=== PATIENT | male | born 1945 | race Caucasian/White ===

== ENCOUNTER → 2017-06-22 | Outpatient (CLI) | payer OTHER ==
[~2017-06-22] MED LIST: CHOL2000 PO; CYAN10005 PO; DOXA4TAB5 PO; DUTA0.5C PO; MAGN400T6 PO; MELA1TAB22 PO; MONT1TAB3 PO; VNTHFA/IN INH
[2017-06-22 18:19] LABS: BASO % 0.1 %; BASO ABS # 0.01 K/uL (0-0.2); EOS % 1.1 %; HEMATOCRIT 42.8 % (42-52); HEMOGLOBIN 14.9 g/dL (14.0-18.0); IG# 0.05 K/uL (0.00-0.02); LYMPH % 17.5 %; LYMPH ABS # 1.63 K/uL (1.2-3.4); MEAN CELL VOLUME 90.5 fL (80-100); MEAN CORPUSCULAR HEMOGLOBIN 31.5 pg (25-34); MEAN CORPUSCULAR HGB CONC 34.8 g/dl (32-36); MEAN PLATELET VOLUME 10.3 fL (7.4-10.4); MONO % 7.9 %; MONO ABS # 0.73 K/uL (0.11-0.59); NEUT % 72.9 %; NEUT ABS # 6.77 K/uL (1.4-6.5); PLATELET COUNT 280 K/uL (130-400); RED CELL DISTRIBUTION WIDTH CV 12.2 % (11.5-14.5); RED CELL DISTRIBUTION WIDTH SD 40.8 fL (36.4-46.3); WHITE BLOOD COUNT 9.29 K/uL (4.8-10.8)
[2017-06-22 18:59] LABS: ALBUMIN 3.4 gm/dl (3.4-5.0); ALT/SGPT 20 U/L (12-78); AST/SGOT 19 U/L (15-37); BLOOD UREA NITROGEN 23 mg/dl (7-18); CALCIUM 8.8 mg/dl (8.5-10.1); CARBON DIOXIDE 31 mmol/L (21-32); CREATININE 1.24 mg/dl (0.60-1.40); GLUCOSE 126 mg/dl (70-99); POTASSIUM 3.6 mmol/L (3.5-5.1); SODIUM 137 mmol/L (136-145)
[2017-06-22 19:04] LABS: ALKALINE PHOSPHATASE 68 U/L (45-117); CHOLESTEROL 180 mg/dl (0-200); LDL CHOLESTEROL CALCULATED 113 mg/dl
--- NOTE | 2017-06-22 19:43 | DIAGNOSTIC IMAGING REPORT ---
CHEST 2 VIEWS ROUTINE HISTORY: FEVER, WENT TO LAB FIRST COMPARISON: Chest CT 07/20/2006. FINDINGS: Stable calcified granulomas within the lungs. No focal lung consolidations to suggest pneumonia. The heart is normal in size. No pleural effusions. No pneumothorax. IMPRESSION: No acute process. Electronically signed by: Ryan Nath M.D. 06/22/2017 7:42 PM Dictated Date/Time: 06/22/2017 7:39 PM
[2017-06-24 14:30] LABS: ANA SCREEN TC 249X NEGATIVE (NEGATIVE)
== END | disposition home or self-care (01) ==
LOC: C.LAB 17:40
PROVIDERS: ATTEND Family Medicine
DX: E78.5 Hyperlipidemia, unspecified (principal); R50.9 Fever, unspecified; R53.83 Other fatigue

== ENCOUNTER → 2017-07-21 | Outpatient (CLI) | payer OTHER ==
--- NOTE | 2017-07-21 06:53 | DIAGNOSTIC IMAGING REPORT ---
(CHEST) THORAX WITHOUT CLINICAL HISTORY: 72 years-old Male presenting with COUGH, FEVER. TECHNIQUE: Multidetector CT imaging of the chest was performed without the use of intravenous contrast. IV contrast: None. A dose lowering technique was used consistent with the principles of ALARA (as low as reasonably achievable). COMPARISON: 07/20/2006. CT DOSE (mGy.cm): The estimated cumulative dose is 354.87 mGy.cm. FINDINGS: [facility] topogram: Hyperinflated lungs. On soft tissue windows, subcentimeter nodules in the right lobe of the thyroid. Bilateral gynecomastia noted. No axillary, supraclavicular, or mediastinal lymphadenopathy. Evaluation of the elisa limited without intravenous contrast. Atherosclerosis of the aorta. Normal heart size. Coronary artery calcification. No pericardial or pleural effusion. Multiple hypodense lobular well-defined lesions in the liver indeterminate but likely hepatic cysts. Multiple parapelvic renal cysts also noted. On lung windows, calcified granuloma noted. Few bandlike opacities likely represent atelectasis or scarring. No other focal nodule or infiltrate. Airways patent. On bone windows, degenerative changes of the spine. IMPRESSION: 1. No acute intrathoracic pathology. Electronically signed by: Isiah Julian M.D. 07/21/2017 6:52 AM Dictated Date/Time: 07/21/2017 6:47 AM
== END | disposition home or self-care (01) ==
LOC: C.CTS 06:33
PROVIDERS: ATTEND Family Medicine
DX: R05 Cough (principal); R50.9 Fever, unspecified

== ENCOUNTER → 2017-07-30 | Outpatient (CLI) | payer OTHER ==
--- NOTE | 2017-07-30 20:40 | ECHOCARDIOGRAM REPORT ---
*NOTICE TO RECEIVING CONSTITUTION PARTY AGENCY This information is strictly Confidential and protected under [place] law. [place] law prohibits you from making any further disclosure of this information unless further disclosure is expressly permitted by the written consent of the person to whom it pertains or is authorized by law. A general authorization for the release of medical or other information is not sufficient for this purpose. Hospital accepts no responsibility if the information is made available to any other person, INCLUDING THE PATIENT. Interpretation Summary * Name: ADILIA GARCIA Study Date: 07/30/2017 12:50 PM BP: 162/81 mmHg * Patient Location: [facility] HR: 66 * : 1945 (M/d/yyyy) Gender: Male Height: 71 in * Age: 72 yrs Ethnicity: CA Weight: 172 lb * Ordering Physician: Ramu Rodgers * Referring Physician: Ramu Rodgers. * Performed By: Fiona Reyes RCS * * Reason For Study: PERIDARDITIS * BSA: 2.0 m2 * -- Conclusions -- * 1. Normal left ventricular size and systolic function. EF 60-65%. No regional wall motion abnormalities. No left ventricular hypertrophy. Type 2 diastolic dysfunction. * 2. Mildly dilated right ventricle with normal systolic function. * 3. There is mild mitral regurgitation. * 4. Large cyst-like structure within the liver. Consider further imaging to further evaluate. * 5. Normal estimated right ventricular systolic pressure. * 6. No prior study available for comparison. Procedure Details * A complete two-dimensional transthoracic echocardiogram was performed (2D, M-mode, Doppler and color flow Doppler). Left Ventricle * Normal left ventricular size and systolic function. EF 60-65%. No regional wall motion abnormalities. No left ventricular hypertrophy. Type 2 diastolic dysfunction. Right Ventricle * Mildly dilated right ventricle with normal systolic function. * The right ventricular systolic function is normal as assessed by tricuspid annular plane systolic excursion (TAPSE) (normal >1.5 cm). Atria * The left atrial size is normal. * Right atrial size is normal. * There is no evidence of atrial septal defect, but resolution does not allow assessment for a patent foramen ovale. Mitral Valve * The mitral valve is grossly normal. * There is no mitral valve stenosis. * There is mild mitral regurgitation. Tricuspid Valve * The tricuspid valve is not well visualized, but is grossly normal. * There is no tricuspid stenosis. * There is mild tricuspid regurgitation. Aortic Valve * The aortic valve is trileaflet. * No hemodynamically significant valvular aortic stenosis. * Trace aortic regurgitation. Pulmonic Valve * The pulmonary valve is inadequately visualized, but the Doppler data is adequate for interpretation. * Pulmonic stenosis is absent. * Trace pulmonic valvular regurgitation. Great Vessels * The aortic root is normal size. * Normal pulmonary venous flow pattern. Pericardium/Pleural * There is no pericardial effusion. Great Vessels * Normal inferior vena cava size and collapsability with sniff indicates a normal right atrial pressure of 3 mmHg MMode 2D Measurements and Calculations IVSd 1.1 cm IVSs 1.5 cm LVIDd 5.2 cm LVIDs 3.3 cm LVPWd 1.1 cm LVPWs 1.5 cm IVS/LVPW 1.0 FS 36.0 % EDV(Teich) 126.7 ml ESV(Teich) 44.0 ml EF(Teich) 65.2 % EDV(cubed) 136.7 ml ESV(cubed) 35.8 ml EF(cubed) 73.8 % % IVS thick 37.5 % % LVPW thick 36.1 % LV mass(C)d 222.9 grams LV mass(C)dI 112.7 grams/m\S\2 LV mass(C)s 185.1 grams LV mass(C)sI 93.6 grams/m\S\2 SV(Teich) 82.7 ml SI(Teich) 41.8 ml/m\S\2 SV(cubed) 100.8 ml SI(cubed) 51.0 ml/m\S\2 Ao root diam 3.0 cm Ao root area 6.9 cm\S\2 ACS 1.9 cm LA dimension 3.7 cm LA/Ao 1.2 LVOT diam 2.0 cm LVOT area 3.1 cm\S\2 LVAd ap4 27.9 cm\S\2 LVLd ap4 6.9 cm EDV(MOD-sp4) 92.2 ml EDV(sp4-el) 95.5 ml LVAs ap4 14.4 cm\S\2 LVLs ap4 5.2 cm ESV(MOD-sp4) 33.6 ml ESV(sp4-el) 33.6 ml EF(MOD-sp4) 63.6 % EF(sp4-el) 64.9 % LVAd ap2 27.0 cm\S\2 LVLd ap2 7.4 cm EDV(MOD-sp2) 82.4 ml EDV(sp2-el) 83.3 ml LVAs ap2 15.9 cm\S\2 LVLs ap2 5.8 cm ESV(MOD-sp2) 37.6 ml ESV(sp2-el) 37.2 ml EF(MOD-sp2) 54.4 % EF(sp2-el) 55.4 % LVLd %diff 7.3 % EDV(MOD-bp) 85.7 ml LVLs %diff 9.6 % ESV(MOD-bp) 36.1 ml EF(MOD-bp) 57.9 % SV(MOD-sp4) 58.7 ml SI(MOD-sp4) 29.7 ml/m\S\2 SV(MOD-sp2) 44.8 ml SI(MOD-sp2) 22.6 ml/m\S\2 SV(MOD-bp) 49.6 ml SI(MOD-bp) 25.1 ml/m\S\2 SV(sp4-el) 62.0 ml SI(sp4-el) 31.3 ml/m\S\2 SV(sp2-el) 46.1 ml SI(sp2-el) 23.3 ml/m\S\2 Doppler Measurements and Calculations MV E max dk 76.6 cm/sec MV A max dk 71.2 cm/sec MV E/A 1.1 MV P1/2t max dk 94.2 cm/sec MV P1/2t 52.2 msec MVA(P1/2t) 4.2 cm\S\2 MV dec slope 528.6 cm/sec\S\2 MV dec time 0.20 sec Ao V2 max 134.1 cm/sec Ao max PG 7.2 mmHg Ao max PG (full) 4.5 mmHg SIXTO(V,A) 1.9 cm\S\2 SIXTO(V,D) 1.9 cm\S\2 LV V1 max PG 2.7 mmHg LV V1 max 81.4 cm/sec MR max dk 471.9 cm/sec MR max PG 89.1 mmHg PA V2 max 143.6 cm/sec PA max PG 8.2 mmHg PI max dk 174.2 cm/sec PI max PG 12.1 mmHg PI dec slope 183.3 cm/sec\S\2 PI P1/2t 278.4 msec TR max dk 279.0 cm/sec RVSP(TR) 34.2 mmHg RAP systole 3.0 mmHg
== END | disposition home or self-care (01) ==
LOC: C.CPL 12:42
PROVIDERS: ATTEND Family Medicine
DX: I31.9 Disease of pericardium, unspecified (principal)

== ENCOUNTER → 2017-08-03 | Outpatient (CLI) | payer OTHER | END | disposition home or self-care (01) | LOC: C.LAB1850 14:50 | PROVIDERS: ATTEND Internal Medicine Infectious Disease | DX: R50.9 Fever, unspecified (principal) ==

== ENCOUNTER → 2017-08-03 | Outpatient (CLI) | payer OTHER ==
[2017-08-03 16:14] LABS: BLOOD UREA NITROGEN 22 mg/dl (7-18); CREATININE 1.23 mg/dl (0.60-1.40)
== END | disposition home or self-care (01) ==
LOC: C.LAB1850 14:48
PROVIDERS: ATTEND Urology
DX: R31.0 Gross hematuria (principal); N40.1 Benign prostatic hyperplasia with lower urinary tract symptoms; R35.0 Frequency of micturition; N32.3 Diverticulum of bladder; R33.9 Retention of urine, unspecified

== ENCOUNTER → 2017-08-05 | Outpatient (CLI) | payer OTHER ==
[~2017-08-05] MED LIST changes: +OPTIRAY 320 IV PRN
--- NOTE | 2017-08-05 08:53 | DIAGNOSTIC IMAGING REPORT ---
CT ABD WITH IV CONTRAST ONLY (CT) CT DOSE: 209.98 mGy.cm CLINICAL HISTORY: Hepatic cyst. Flulike symptoms. TECHNIQUE: The patient was scanned in a dynamic helical fashion during intravenous administration of 93 cc of Optiray 320. A dose lowering technique was utilized adhering to the principles of ALARA. COMPARISON STUDY: CT scan of chest dated 07/21/2017, CT scan of the chest dated 07/20/2006. FINDINGS: Visualized portions of the lung bases reveal minimal dependent atelectatic change. There are no significant pleural effusions. This 74 mm hypodensity with thin the right hepatic lobe. This approaches water attenuation and is consistent with a cyst. This cyst measured 17 mm in 2006. There are multiple additional hepatic hypodensities which are felt to represent additional cysts. There is no ductal dilatation. No gallbladder abnormalities are visualized. No splenic masses are visualized. Masses are visualized. There is minor bilateral adrenal gland thickening. There are bilateral renal cortical and parapelvic cysts. No solid renal masses are visualized. There is a nonobstructing 2 mm left renal calculus. There is no evidence of pathologic upper abdominal lymphadenopathy. There is no evidence of abdominal aortic aneurysm. There is fecal retention. IMPRESSION: 1. Multiple hepatic cysts, slightly enlarged when compared the prior 2017 study 2. Nonobstructing 2 mm left renal calculus 3. Bilateral renal cortical and parapelvic cysts 4. Fecal retention Electronically signed by: Hilario Mulligan M.D. 08/05/2017 8:17 AM Dictated Date/Time: 08/05/2017 8:13 AM
== END | disposition home or self-care (01) ==
LOC: C.CTS 07:51
PROVIDERS: ATTEND Family Medicine
DX: K76.89 Other specified diseases of liver (principal)

== ENCOUNTER → 2017-08-11 | Outpatient (CLI) | payer OTHER ==
[~2017-08-11] MED LIST changes: -OPTIRAY 320 IV PRN
--- NOTE | 2017-08-11 09:47 | DIAGNOSTIC IMAGING REPORT ---
ABDOMEN LIMITED (US) CLINICAL HISTORY: 72 years-old Male presenting with CYST ON CT, EVIDENCE OF HYDATID DISEASE. TECHNIQUE: Real-time grayscale and limited color Doppler ultrasound imaging of the abdomen limited to the right upper quadrant was performed. COMPARISON: CT from 08/05/2017. FINDINGS: Pancreas: Visualized portions of the pancreatic head and body normal. Liver: Multiple lobular anechoic lesions in the liver compatible with cysts. The largest measures 6.3 x 5.6 x 6.5 cm. Several cysts appear as a small cluster. The liver measures 19.3 cm in maximal sagittal dimension. No sonographic evidence of solid hepatic mass. Main portal vein patent with normal directional flow. Biliary: No intrahepatic biliary ductal dilatation. Common bile duct measures up to 3 mm in diameter. Gallbladder: Trace gallbladder sludge. No evidence of gallstones, gallbladder wall thickening, gallbladder distention, or pericholecystic fluid or inflammatory change. Right kidney: Parapelvic cysts noted. No hydronephrosis. Normal renal size. Ascites: None. Other: None. IMPRESSION: 1. Multiple hepatic cysts. The appearance is not specific for hydatid disease. 2. Gallbladder sludge. Electronically signed by: Isiah Julian M.D. 08/11/2017 9:45 AM Dictated Date/Time: 08/11/2017 9:39 AM
== END | disposition home or self-care (01) ==
LOC: C.ULTR 08:42
PROVIDERS: ATTEND Family Medicine
DX: K76.89 Other specified diseases of liver (principal)

== ENCOUNTER 2023-08-20 08:24 | Observation (INO) ==
--- NOTE | 2023-08-09 09:59 | Anesthesiology Consultation ---
Date of Service August 09, 2023 Assessment & Plan (1) Encounter for pre-operative examination: Chart Review Chart Review: Acceptable Risk for Surgery and Patient NOT seen in Pre Admission Testing - Check BSG AM DOS -Infectious Disease screening: Per PAT nursing assessment on 08/05/23. No known infectious disease contacts in past 10 days or current infectious disease symptoms. No recent travel outside the country. History Surgery Operation Date: 08/20/23 09:40 Proposed Procedures p TURP (Transurethral Resection of Prostate) - Rizwan Zamarripa MD Height/Weight Height: 5 ft 11 in Weight: 74.843 kg Allergies Allergy/AdvReac Type Severity Reaction Status Date / Time No Known Drug Allergies Allergy Unknown . Verified 08/05/23 11:32 Dust Allergy Uncoded 08/05/23 11:32 Medications Home Medications Medication Instructions Recorded Confirmed Last Taken montelukast 10 mg tablet 10 mg PO HS 06/26/20 08/05/23 Unknown acetaminophen 500 mg tablet 500 mg PO Q8H PRN Pain 07/08/23 08/05/23 Unknown albuterol sulfate 90 mcg/actuation 1 inh inhalation UD PRN sob 07/08/23 08/05/23 Unknown aerosol inhaler cholecalciferol (vitamin D3) 50 50 mcg PO DAILY 07/08/23 08/05/23 Unknown mcg (2,000 unit) tablet docusate sodium 250 mg capsule 250 mg PO HS 07/08/23 08/05/23 Unknown oxybutynin chloride 5 mg tablet 5 mg PO DAILY PRN . 07/08/23 08/05/23 Unknown tamsulosin 0.4 mg capsule 0.4 mg PO HS 07/08/23 08/05/23 Unknown nystatin-triamcinolone 100,000 1 applic topical BID #30 grams 07/29/23 08/05/23 Unknown unit/gram-0.1 % topical ointment finasteride 5 mg tablet 5 mg PO QAM 08/05/23 08/05/23 Unknown valsartan 40 mg tablet 40 mg PO QAM 08/05/23 08/05/23 Unknown Past Medical History Medical History (Updated 08/09/23 @ 11:42 by Angie Olson PA-C) Allergy-induced asthma has not needed inhaler for a long time Bilateral inguinal hernia without obstruction or gangrene no surgery BPH (benign prostatic hyperplasia) Diabetes Per records Diet controlled Environmental allergies Sheldon catheter in place has been in place since approximately May 2023 (had lumbar decompression/fusion surgery in [place] that resulted in urinary retention) History of GI bleed 05/24/19 in [place], EGD& colonoscopy showed gastritis & diverticulosis History of skin cancer Hx of thyroid cyst pt unsure Hypertension Stage 3a chronic kidney disease Past Family History Family History Mother , age 86 Diabetes Father , age 75 Stroke Sister Diabetes Other Cancer Cardiac disorder No family history of adverse response to anesthesia Prostate cancer Denies family history of Ovarian cancer Myocardial infarction Breast cancer Colorectal cancer Past Surgical History Surgical History H/O colonoscopy History of cataract surgery rt/left S/P cystoscopy Social History Smoking Status: Never smoker Do You Dip or Chew Tobacco: No Hx Alcohol Use: Yes alcohol intake frequency: holidays/special occasions only Hx Substance Use: No substance use type: does not use Lab Results Anesthesia Preop Results Results Anesthesia Widget: WBC 7.92 K/ul (4.8-10.8) 08/05/23 Hgb 14.8 g/dl (14.0-18.0) 08/05/23 Hct 44.9 % (42.0-52.0) 08/05/23 Plt 401 K/uL (130-400) H 08/05/23 Na 137 mmol/L (136-145) 08/05/23 K 4.4 mmol/L (3.5-5.1) 08/05/23 Cl 102 mmol/L (98-107) 08/05/23 CO2 24 mmol/L (21-32) 08/05/23 BUN 32 mg/dl (6-23) H 08/05/23 Creat 1.32 mg/dl (0.6-1.4) 08/05/23 Glucose Level 223 mg/dl (70-99(Fasting)) H 08/05/23 Urine Color Yellow 07/05/23 Urine Appearance Clear (Clear) 07/05/23 Urine pH 5.5 (4.5-7.5) 07/05/23 Urine Specific [place] 1.020 (1.000-1.030) 07/05/23 Urine Protein Negative (Negative) 07/05/23 Urine Glucose (UA) Negative (Negative) 07/05/23 Urine Ketones Negative (Negative) 07/05/23 Urine Blood 2+ (Negative) H 07/05/23 Urine Nitrite Positive (Negative) A 07/05/23 Urine Bilirubin Negative (Negative) 07/05/23 Urine Urobilinogen Negative (Negative) 07/05/23 Urine Leukocyte Esterase Negative (Negative) 07/05/23 Urine WBC (Auto) 1-5 /hpf (0-5) 07/05/23 Urine RBC (Auto) 10-30 /hpf (0-4) H 07/05/23 Urine Hyaline Casts (Auto) 1-5 /lpf (0-5) 07/05/23 Urine Epithelial Cells (Auto) 0-5 /lpf (0-5) 07/05/23 Urine Bacteria (Auto) 3+ (Negative) H 07/05/23 Testing Laboratory Results 07/09/23= URINE CULTURE: E coli ESBL >100,000 CFU/ml 05/06/23= HGB A1C: 6.4 Electrocardiogram Date: 07/09/23 Findings: + NSR @ (66bpm) Left axis deviation Septal infarct, age undetermined (Patient can do 1 FOS without SOB, spoke with patient on 08/09/23- denies any chest pain, chest discomfort, SOB; had lumbar fusion 05/2023 without anesthesia issues - discussed with Dr. Ennis- patient can proceed as scheduled) Chest X-Ray FINDINGS: Lung volumes are normal. There is no consolidation. Calcified left lung nodules are unchanged. These are benign. There is no pneumothorax or pleural effusion. Cardiac size is normal. Mediastinal contours are normal. There is no evidence for pulmonary edema. Anterior osteophytosis of the thoracic spine is incidentally noted. IMPRESSION: No acute cardiopulmonary findings.
[2023-08-20] MEDS: LACTATED RINGER'S 1,000 ML IV SCH (09:01)
[2023-08-20] MEDS: GENTAMICIN SULFATE 80 MG in DEXTROSE 5% 100 ML IV SCH (09:02)
[2023-08-20] MEDS ORDERED: fentaNYL citrate PF 100 MCG/2 ML VIAL ONE (09:39)
[2023-08-20] MEDS ORDERED: MIDAZOLAM HCL 1 MG/ML 2ML VIAL ONE (09:39)
[2023-08-20] MEDS ORDERED: PROPOFOL IV EMULSION 10 MG/ML 20 ML VIAL IV ONE (09:45)
[2023-08-20] MEDS ORDERED: ONDANSETRON INJ 2 MG/ML 2 ML VIAL ONE (09:45)
[2023-08-20] MEDS ORDERED: LIDOCAINE 2% 2 ML VIAL/AMP(20MG/ML) INFIL ONE (09:45)
[2023-08-20] MEDS ORDERED: ePHEDrine sulfate 50 MG/ML AMP IV PRN (09:53)
[2023-08-20] MEDS ORDERED: ATROPINE SULFATE 0.1 MG/ML 10ML SYR IV PRN (09:53)
[2023-08-20] MEDS ORDERED: PROMETHAZINE HCL 6.25 MG in SODIUM CHLORIDE 0.9% 50 ML IV PRN (09:53)
--- NOTE | 2023-08-20 10:12 | History & Physical Bridge Note ---
Date of Service August 20, 2023 History & Physical Bridge Note I have examined the patient, reviewed the History & Physical and in the interval since the performance of the History & Physical I have noted the following changes of clinical significance: no changes noted
[2023-08-20] MEDS: AMPICILLIN 1,000 MG in SODIUM CHLOR 0.9% MINI-B 100 ML IV ONE (10:25)
[2023-08-20] MEDS ORDERED: PHENYLEPHRINE 100MCG/ML 10ML SYR IV ONE (11:03)
[2023-08-20] MEDS ORDERED: ePHEDrine sulfate 50 MG/5 ML SYR ONE (11:03)
[2023-08-20] MEDS: HYDROmorphone INJ 1 MG/ML SYRINGE IV PRN (11:37)
--- NOTE | 2023-08-20 11:37 | Operative Report ---
PG Post Operative Report Pre & Post Diagnosis Operation Date: 08/20/23 10:00 Pre-Op Diagnosis: Benign Prostatic Hyperplasia with Lower Urinary Tract Symptoms Post-Op Diagnosis: Benign Prostatic Hyperplasia with Lower Urinary Tract Symptoms I identified the patient and participated in the time-out.: Yes Procedure Operation Date: 08/20/23 10:00 Actual Procedures p Transurethral Resection of Prostate(Not Applicable) - Rizwan Zamarripa MD Surgeon Rizwan Zamarripa MD Electric Plater none Estimated Blood Loss 0 Findings Consistent with Post-Op Diagnosis Specimens Prostate chips Description of Procedure The patient was identified in the preoperative holding area, appropriate informed consents were reviewed and completed and the patient was transferred to the operative suite. Upon arrival, appropriate antibiotics and anesthesia were administered and the patient was placed in dorsal lithotomy position and prepped and draped in sterile fashion. Begin the case I passed a 26 Kyr[place]z resectoscope with 30 degree lens and visual line haul owner operator. Inspection revealed a healthy-appearing urethra and an enlarged prostate with a high bladder neck and lateral lobe obstruction. He does have some intravesical protrusion of his prostate. His bladder is heavily trabeculated with a notable diverticulum on the posterior wall just to the left of midline. No tumors or other gross abnormalities were proceed with in the bladder. Ureteral orifices were identified. Following my inspection I exchanged the visual obturator for loop electrode to begin resecting the prostatic tissue. I began around the bladder neck and took the intravesical tissue. I then proceeded to resect the left lateral lobe followed by the right lateral lobe. I concluded my resection by trimming some posterior tissue and apical tissue. All chips were irrigated out of the bladder and meticulous hemostasis was obtained. At the conclusion of the resection his prostate was widely patent. A 22 [place] 30 cc balloon Sheldon catheter was inserted without difficulty and he was reversed of anesthesia and taken to the recovery room in stable condition. There were no complications. I attest to the content of the Intraoperative Record and any orders documented therein. Any exceptions are noted below.
[2023-08-20] MEDS ORDERED: ALBUTEROL HFA 8 GM INHALER INH PRN (12:44)
[2023-08-20] MEDS ORDERED: GENTAMICIN CONSULT ACTIVE PRN (12:44)
[2023-08-20] MEDS ORDERED: GENTAMICIN SULFATE 80 MG in DEXTROSE 5% 100 ML IV SCH (12:44)
[2023-08-20] MEDS: SODIUM CHLORIDE 0.9% 1,000 ML IV SCH (13:05)
[2023-08-20] MEDS: ACETAMINOPHEN 500 MG TAB PO PRN (13:05)
--- NOTE | 2023-08-20 14:12 | Anesthesiology Progress Note ---
Date of Service August 20, 2023 Anesthesia Post Procedure Vital Signs Vital Signs: Temp Pulse Pulse Resp BP BP Pulse Ox 08/20/23 13:42 36.3 C L 61 17 133/66 96 08/20/23 13:17 36.5 C 60 17 126/71 95 08/20/23 12:45 36.3 C L 65 16 131/65 95 08/20/23 12:30 71 16 132/60 94 08/20/23 12:15 66 14 132/59 L 92 08/20/23 12:00 68 14 125/60 93 08/20/23 11:50 36.4 C L 65 16 132/63 97 08/20/23 11:40 64 14 133/62 100 08/20/23 11:32 36.0 C L 70 16 150/59 H 100 08/20/23 09:10 36.8 C 71 20 163/93 H 95 O2 Del Method O2 Flow Rate 08/20/23 13:42 Room Air 08/20/23 13:17 Room Air 08/20/23 12:45 Room Air 08/20/23 12:30 Room Air 08/20/23 12:15 Room Air 08/20/23 12:00 Room Air 08/20/23 11:50 Room Air 08/20/23 11:40 Oxymask 3 08/20/23 11:32 Oxymask 4 08/20/23 09:10 Room Air Pain Intensity Lower 2nd Digit Abdomen: Pain Intensity: 4 Penis: Pain Intensity: 4 Transfer of Care Handoff Completed per policy Notes Mental Status: alert / awake / arousable and participated in evaluation Nausea / Vomiting: adequately controlled Pain: adequately controlled Airway Patency, RR, SpO2: stable & adequate BP & HR: stable & adequate Hydration State: stable & adequate Anesthetic Complications: no major complications apparent and Pt Satisfied with anesthetic care
[2023-08-20 14:27] LABS: Creatinine Clr Calc Pharmacy 48.6 ml/min; Est GFR (African American) 64.5 ml/min; Est GFR (Non-African American) 55.6 ml/min
--- OUTSIDE RECORDS SUMMARY | 2023-08-20 14:47 | External Medical Summary | Summary of Care ---
Author Name Unknown Organization [facility] Address [address] [facility] [place] [address] Phone [phone] Care Team Providers Care Horse Breeder Name Role Phone Ramu Fuller MD Primary Care Provide r Reason for Visit * Reason Comments Follow Up Pt has a concerning lesion on his face that has grown back since using cryo Encounter Details Date Type Department Care Team (Late st Contact Info) Description 08/18/2023 8:30 AM EDT Office Visit Dermatology [facility] [address] [facility] [place] [address] Corona Kwon MD [address] [facility] [address] Inflamed seborrheic keratosis*; Actinic keratosis Allergies Active Allergy Reactions Criticality Noted Date Comments Dust Mite Extract 03/14/2014 Other reaction(s): Other Dust 03/14/2014 documented as of this encounter (statuses as of 08/18/2023) Medications Medication Sig Dispensed Refills Start Date End Date Status DOXAZOSIN MESYLATE 4 MG PO TABS 1 TABLET DAILY 0 Active AEROCHAMBER PLUS MISCIndications:As thma, severity to be determined use with inhalers as needed 1 5 12/04/2008 Active MIRALAX PO POWD Take by mouth. Pt takes 1/2 a capful every night 0 01/22/2009 Active Cyanocobalamin (VITAMIN B-12 ER) 1500 MCG TBCR Take 1 Tab by mouth daily. 0 Active Cholecalciferol (VITAMIN D3) 2000 units Capsule Take 1 Capsule by mouth in the morning. 0 Active Melatonin 5 MG Tablet Take 1 Capsule by mouth at bedtime. 0 Active finasteride (PROSCAR) 5 MG Tablet Take by mouth daily. 0 04/14/2019 Active omeprazole (PRILOSEC) 20 MG CPDR Take 1 Capsule by mouth in the morning. 0 Active Simethicone 125 MG Oral Capsule Take by mouth 3 times a day. 0 Active Dicyclomine HCl 10 MG Oral Capsule (Bentyl) Take 1 Cap by mouth 3 times a day. As needed for abdominal pain 270 Cap 1 06/24/2020 Active Finasteride 5 MG Oral Tablet (Proscar) Take 1 Tablet by mouth in the morning. 0 06/11/2020 Active Clindamycin Phosphate 1 % External GelIndications:Fol liculitis apply to pimple-like areas on face and back/upper body nightly as needed 60 g 2 09/27/2021 Active Acetaminophen 500 MG Oral Tablet (Tylenol) Take 1 Tablet by mouth. 0 11/06/2021 Active Diclofenac Potassium 50 MG Oral Tablet Take one tab daiy prn 0 07/07/2021 Active Diclofenac Sodium 1 % External Gel (Voltaren) Apply 4 g topically to affected area in the morning and 4 g at noon and 4 g in the evening and 4 g before bedtime. 0 08/08/2021 Active Gabapentin 100 MG Oral Capsule (Neurontin) 0 11/05/2021 Active Valsartan 80 MG Oral Tablet (Diovan) Take 1 Tablet by mouth in the morning. 0 07/07/2021 Active Cetirizine HCl 10 MG Oral Tablet (ZyrTEC) Take 1 tablet daily about an hour before bedtime to reduce postnasal drip due to underlying allergies 30 Tablet 6 12/30/2021 Active Additional Information Patient not taking.Reported on 05/04/2023 Minocycline HCl 50 MG Oral CapsuleIndications :Rosacea 1 tablet daily during breakouts as needed 60 Capsule 2 02/13/2022 Active Sodium Sulfacetamide Wash 10 % External LiquidIndications: Rosacea wash face/upper body a few times a week 355 mL 2 02/13/2022 Active DULoxetine HCl 40 MG Oral Capsule Delayed Release Particles Take 1 Capsule by mouth in the morning. 0 11/05/2022 Active Montelukast Sodium 10 MG Oral Tablet (Singulair) Take 1 Tablet by mouth every evening. 90 Tablet 3 12/07/2022 Active Ventolin HFA 108 (90 Base) MCG/ACT Inhalation Aerosol Solution INHALE TWO PUFFS BY MOUTH EVERY FOUR HOURS NEEDED FOR COUGH, WHEEZING OR SHORTNESS OF BREATH AND WITH RESPIRATORY INFECTIONS 18 g 5 01/28/2023 Active [place]-Smoothe/FS Scalp 0.01 % External Oil Apply to scalp 118.28 mL 0 03/08/2023 Active Magnesium 200 MG Tablet Take 1 Tablet by mouth in the morning. 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 Hx of actinic keratosis 02/10/2017 PND (post-nasal drip) 04/29/2015 Ringing in left ear 01/16/2014 Asthma, mild persistent 08/04/2011 Allergic rhinitis 08/04/2011 Hoarseness 08/04/2011 Benign neoplasm of colon 02/10/2009 Overview: adenomatous polyp, fair prep, f/u in 2-3 yrs Hyperplasia of prostate with out lower urinary tract symptoms (LUTS) Rosacea documented as of this encounter (statuses as of 08/18/2023) Resolved Problems Problem Noted Date Diagnosed Date Resolved Date Intermittent asthma with rel iever use up to twice per week 01/06/2011 08/04/2011 Asthma, mild persistent 01/07/201012/12 Allergic rhinitis 09/11/2008 08/04/2011 Dyspnea and respiratory abnormality 07/12/2007 05/07/2009 Overview: ICD-10 update of inactive term Asthma with severity to be determined 06/07/2007 01/07/2010 Overview: ICD-10 update of inactive term documented as of this encounter (statuses as of 08/18/2023) Immunizations Name Administration Dates Next Due Season Influenza, Quad, PF, Adjuvanted, 65+ Yrs, IM (FLUAD) 12/19/2019 Seasonal Influenza, Quadrivalent, No Preserve, I M 02/24/2015 documented as of this encounter Social History Tobacco Use Types Packs/Day Years Used Date Smoking Tobacco: Never Smokeless Tobacco: Never Comments:no passive smoke ex posure Alcohol Use Standard Drinks/Week Comments No 0 (1 standard drink = 0.6 oz pur e alcohol) Sex and Gender Information Value Date Recorded Sex Assigned at Male 09/17/2021 7:40 PM EDT Gender Identity Male 09/17/2021 7:40 PM EDT Sexual Orientation Straight 09/17/2021 7: 40 PM EDT Job Start Date Occupation Industry Not on file Not on file Not on file Travel History Travel Start Travel End [place] 08/08/2023 08/17/2023 documented as of this encounter Progress Notes * Corona Kwon MD - 08/18/2023 8:33 AM EDT SUBJECTIVE: Chief Complaint: Chief Complaint Patient presents with Follow Up Pt has a concerning lesion on his face that has grown back since using cryo HPI: Xu Bess is a 78 year old male seen for ACUTE visit for lesion on right taoism. Gre back after cryo. Also has a few other spots on face he'd like me to examine OBJECTIVE: GEN: Healthy, alert, no distress, appears oriented, pleasant, and cooperative SKIN: Problem focused exam reveals: A. Right taoism - 5mm waxy brown papule with surrounding erythema - ISK Forehead x2, left cheek x1 - x3 gritty erythematous macules/papules ASSESSMENT/PLAN: Skin neoplasm Recommend biopsy - likely ISK, but r/o SCC - patient declined biopsy today due to upcoming procedure, would like to wait 2- 3 weeks. Will see back in 3 weeks for biopsy/removal to r/o scc actinic keratoses - recommend cryo, will treat at same time as biopsy above Corona Kwon MD Ref: SELF[[id number]] NO STRE[address] ADDRESS AVAILABLE None (office) None (fax) PCP: RAMU FULLER [address] [place] [address] [phone] documented in this encounter Nursing Notes * Alysia Sharp LPN - 08/18/2023 8:29 AM EDT Patient identified by name and date of . Do you have any concerns about pain management for today's visit? No Living Will or Advance Directive for Health Care as noted on problem list. [facility] is a way you can talk to your provider online through e-mail. Would you like to sign up? I can activate it for you? ALREADY ACTIVE Chief Complaint Patient presents with Follow Up Pt has a concerning lesion on his face that has grown back since using cryo documented in this encounter Plan of Treatment Upcoming Encounters Date Type Department Care Team (Late st Contact Info) Description 09/03/2023 3:00 PM EDT Office Visit Otolaryngology [facility] [address] [place] [address] Naresh Martinez DO [address] [place] [address] 09/08/2023 8:00 AM EDT Office Visit Dermatology [facility] [place] [address] [place] [address] Corona Kwon MD [address] [place] [address] Scheduled Procedures Name Priority Associated Diagnoses Date/Ti me COLONOSCOPY FLEXIBLE PROXIMAL DIAGNOSTIC Recall History of colon polyps Health Maintenance Due Date Last Done Comments Depression Screening 1957 DTaP,Tdap,and Td Vaccines (1 - Tdap) 1962 Pneumococcal Vaccine: 65+ Years (2 of 2 - PCV) 06/14/2010 06/14/2009 COVID-19 Vaccine ( - 2022- season) 2023 02/02/2023, 02/02/2023, 01/07/2022, Additional history exists Colonoscopy 05/19/2024 05/19/2019, 02/11, 03/10/2017, Additional history exists RETIRED - COLONOSCOPY-EVERY 5 YRS AGES 18-100 Discontinued 05/19/2019, 03/10/2017, 03/10/2017, Additional history exists Zoster Vaccines Completed 11/07/2020, 10/10, 06/15/2020, Additional history exists Influenza Vaccine (FLU shot) Completed 02/02/2023, 12/19/2019, 12/19/2019, Additional history exists GARDASIL-HPV IMMUNIZATION SERIES Aged Out No longer eligible based on patient's age to complete this topic Hepatitis B Aged Out No longer eligi ble based on patient's age to complete this topic MENINGOCOCCAL (MENACTRA/MENVEO) Aged Out No longer eligible based on patient's age to complete this topic documented as of this encounter Medical Devices Not on filedocumented as of this encounter Visit Diagnoses Diagnosis Inflamed seborrheic keratosis- Primary Actinic keratosis documented in this encounter Care Teams Horse Breeder Relationship Specialty Start Date End Date Ramu Fuller MD [address] [place] [address] PCP - General Family Medicine 08/26/22 documented as of this encounter
--- OUTSIDE RECORDS SUMMARY | 2023-08-20 14:47 | External Medical Summary | Summary of Care ---
Author Name Unknown Organization [facility] Address [address] [facility] [place] [address] Phone [phone] Care Team Providers Care Spiritual Minister Name Role Phone Ramu Fuller MD Primary Care Provide r Reason for Visit * Reason Comments Follow Up Pt has a concerning lesion on his face that has grown back since using cryo Encounter Details Date Type Department Care Team (Late st Contact Info) Description 08/18/2023 8:30 AM EDT Office Visit Dermatology [facility] [address] [facility] [place] [address] Corona [facility]won MD [address] [facility] [address] Inflamed seborrheic keratosis*; Actinic keratosis Allergies Active [...] RESPIRATORY INFECTIONS 18 g 5 01/28/2023 Active [place]-Smoothe/FS Scalp 0.01 % External Oil Apply to [...] file Travel History Travel Start Travel End [place] 08/08/2023 08/17/2023 documented as of this encounter Progress Notes * Corona Kwon MD - 08/18/2023 8:33 AM EDT SUBJECTIVE: Chief Complaint: Chief Complaint Patient presents with Follow Up Pt has a concerning lesion on his face that has grown back since using cryo HPI: Xu Bess is a 78 year old male seen for ACUTE visit for lesion on right orthodoxy. Gre back after cryo. Also has a few other spots on face he'd like me to examine OBJECTIVE: GEN: Healthy, alert, no distress, appears oriented, pleasant, and cooperative SKIN: Problem focused exam reveals: A. Right orthodoxy - 5mm waxy brown papule with surrounding [...] as biopsy above Corona Kwon MD Ref: SELF[[id number]] NO STRE[address] ADDRESS AVAILABLE None (office) None (fax) PCP: RAMU FULLER [address] [place] [address] [phone] documented in this encounter Nursing Notes * Alysia Sharp LPN - 08/18/2023 8:29 AM EDT Patient identified by name and date of . Do you have any concerns about pain management for today's visit? No Living Will or Advance Directive for Health Care as noted on problem list. [facility] is a way you can talk to [...] 09/03/2023 3:00 PM EDT Office Visit Otolaryngology [facility] [address] [place] [address] Naresh Martinez DO [address] [place] [address] 09/08/2023 8:00 AM EDT Office Visit Dermatology [facility] [place] [address] [place] [address] Corona Kwon MD [address] [place] [address] Scheduled Procedures Name Priority Associated Diagnoses Date/Ti [...] keratosis documented in this encounter Care Teams Spiritual Minister Relationship Specialty Start Date End Date Ramu Fuller MD [address] [place] [address] PCP - General Family Medicine 08/26/22 documented as of this encounter
--- NOTE | 2023-08-20 15:17 | Pharmacy Report ---
Pharmacy PK ABX Note - Date of Service August 20, 2023 - Assessment and Plan Assessment 78 year old M receiving gentamicin for treatment of UTI-complicated. Pertinent microbiologic data includes: Hx ESBL E. Coli in urine 07/08 R Fluoroquinolones, Bactrim S meropenem, ertapenem, gentamicin. Reported UTI POD #0 TURP Day # 1 of antimicrobial therapy. Plan Gentamicin * gentamicin 80 mg IV x 1 preop, additional 240mg ordered for now (5mg/kg total) * Maintenance dose: 360 mg IV every 24 hours * Random level ordered for: 08/20/23 @2200 * Dosing adjustments per the [facility] will continue to follow and will adjust dose/frequency as necessary. Thank you.
[2023-08-20] MEDS: GENTAMICIN SULFATE 280 MG in DEXTROSE 5% 100 ML IV ONE (15:48)
[2023-08-20] MEDS: PHENAZOPYRIDINE HCL 200 MG TAB PO PRN (15:57)
[2023-08-20] MEDS: bisacodyL 10 MG SUPP PR STA (17:57)
[2023-08-20] MEDS: DOCUSATE SODIUM 100 MG CAP PO ONE (18:04)
[2023-08-20] MEDS: MELATONIN 3 MG TAB PO PRN (22:18)
[2023-08-20] MEDS: MONTELUKAST SODIUM 10 MG TABLET PO SCH (22:46)
[2023-08-21 06:35] LABS: Basophils # (auto) 0.01 K/uL (0.00-0.20); Basophils % (auto) 0.1 %; Eosinophils % (auto) 1.3 %; Hematocrit (blood only) 41.2 % (42.0-52.0); Hemoglobin 13.5 g/dl (14.0-18.0); Immature Granulocytes # (auto) 0.04 K/uL (0.01-0.20); Immature Granulocytes % (auto) 0.5 %; Lymphocytes # (auto) 1.15 K/uL (1.20-3.40); Lymphocytes % (auto) 14.4 %; Mean Corpuscular Hgb Conc 32.8 g/dL (32.0-36.0); Mean Corpuscular Volume 91.6 fL (80.0-100.0); Mean Platelet Volume 10.2 fL (9.4-12.4); Monocytes # (auto) 0.65 K/uL (0.11-0.59); Monocytes % (auto) 8.1 %; Neutrophils # (auto) 6.05 K/uL (1.40-6.50); Neutrophils % (auto) 75.6 %; Platelet Count 311 K/uL (130-400); RDW Coefficient of Variation 12.7 % (11.5-14.5); RDW Standard Deviation 42.5 fL (36.4-46.3)
[2023-08-21 06:59] LABS: BUN Creatinine Ratio 20.7 (10-20); Calcium 8.7 mg/dl (8.6-10.3); Creatinine Clr Calc Pharmacy 42.3 ml/min; Est GFR (African American) 54.6 ml/min; Est GFR (Non-African American) 47.1 ml/min; Potassium 4.3 mmol/L (3.5-5.1)
--- NOTE | 2023-08-21 09:07 | Urology Progress Note ---
Date of Service August 21, 2023 Assessment & Plan (1) Urinary retention due to benign prostatic hyperplasia: Plan: Postop day #1 status post TURP Remove catheter now Discharge home after void Admission and Anticipated Discharge Date Admission Date: August 20, 2023 Subjective Progressing appropriately after TURP Urine clear No significant pain Anxious for voiding trial and discharge home Physical Exam Physical Exam: Urine clear (orange from Pyridium) Results & Data Vital Signs (Past 12 Hours) Vital Signs Temp Pulse Resp BP Pulse Ox O2 Del Method 08/21/23 07:47 37.0 C 60 16 141/64 H 96 Room Air 08/21/23 03:38 36.4 C L 66 16 128/68 96 Room Air 08/20/23 23:00 36.5 C 55 L 16 138/72 98 Room Air PG Care Time/CCT Total # of Minutes Spent Total Time Spent with Patient: Total time spent is greater than 50% in coordination of care (as documented) at patient's floor/unit and/or counseling patient: Coding Level of Care Code None Diagnoses Urinary retention due to benign prostatic hyperplasia N40.1; R33.8
[2023-08-21] MEDS: VALSARTAN 80 MG TAB PO SCH (09:45)
[2023-08-21] MEDS ORDERED: GENTAMICIN SULFATE 360 MG in DEXTROSE 5% 100 ML IV SCH (15:00)
[2023-08-22] MEDS ORDERED: GENTAMICIN SULFATE 360 MG in DEXTROSE 5% 100 ML IV SCH (03:00)
== END 2023-08-21 11:54 | disposition home or self-care (01) ==
LOC: 3N 08:24 → ASU 08:24 → 3N 19:16

== ENCOUNTER 2023-09-01 19:18 | Inpatient (IN) ==
[2023-09-01 19:56] LABS: Appearance Urine Turbid (Clear); Bilirubin Urine Negative (Negative); Blood Urine 3+ (Negative); Color Urine Red; Glucose Urine UA Negative (Negative); Ketones Urine Negative (Negative); Leukocyte Esterase Urine 1+ (Negative); Nitrite Urine Negative (Negative); Protein Urine 3+ (Negative); Specific Gravity Urine 1.025 (1.000-1.030); Urobilinogen Urine Negative (Negative); pH Urine 5.5 (4.5-7.5)
[2023-09-01 19:59] LABS: Epithelial Cell Urine 0-2 /hpf (0-2)
[2023-09-01 20:00] LABS: Bacteria Urine None Seen (None Seen); RBC Urine >20 /hpf (0-2); WBC Urine >50 /hpf (0-5)
[2023-09-01 20:17] LABS: Basophils # (auto) 0.01 K/uL (0.00-0.20); Basophils % (auto) 0.1 %; Eosinophils # (auto) 0.09 K/uL (0.00-0.50); Eosinophils % (auto) 0.7 %; Hematocrit (blood only) 43.2 % (42.0-52.0); Hemoglobin 14.4 g/dl (14.0-18.0); Immature Granulocytes # (auto) 0.06 K/uL (0.01-0.20); Immature Granulocytes % (auto) 0.5 %; Lymphocytes # (auto) 1.68 K/uL (1.20-3.40); Lymphocytes % (auto) 13.9 %; Mean Corpuscular Hemoglobin 29.9 pg (25.0-34.0); Mean Corpuscular Hgb Conc 33.3 g/dL (32.0-36.0); Mean Corpuscular Volume 89.6 fL (80.0-100.0); Monocytes % (auto) 8.3 %; Neutrophils # (auto) 9.27 K/uL (1.40-6.50); Neutrophils % (auto) 76.5 %; Platelet Count 381 K/uL (130-400); RDW Coefficient of Variation 12.6 % (11.5-14.5); RDW Standard Deviation 41.3 fL (36.4-46.3); Red Blood Count 4.82 M/uL (4.70-6.10); White Blood Count 12.11 K/ul (4.8-10.8)
[2023-09-01 20:32] LABS: Albumin Globulin Ratio 1.3 (0.9-2); Albumin Level 4.1 gm/dl (3.4-5.0); BUN Creatinine Ratio 25.5 (10-20); Bilirubin,Total 0.5 mg/dl (0.2-1.0); Calcium 9.2 mg/dl (8.6-10.3); Est GFR (African American) 56.1 ml/min; Est GFR (Non-African American) 48.4 ml/min; Globulin 3.2 gm/dl (2.5-4.0); Potassium 4.6 mmol/L (3.5-5.1); Total Protein 7.3 gm/dl (6.0-8.3)
--- NOTE | 2023-09-01 22:45 | Emergency Department Note ---
History of Present Illness General Chief complaint: Hematuria Stated complaint: RECENT SURG, HEMATURIA/10 HRS, URGENCY Time Seen by Provider: 09/01/23 21:48 History of Present Illness Maximum Pain Intensity: 3 This 78-year-old male that had a TURP [address] Zamarripa who finished antibiotics 5 days ago presents ER for increasing urinary symptoms and bladder discomfort. Patient has a history of ESBL. He is unsure of his antibiotic from 5 days ago. Patient denies chest pain, dyspnea, fevers, vomiting, flank pain. Home Medications Medication Instructions Recorded Confirmed Type montelukast 10 mg tablet 10 mg PO HS 06/26/20 09/01/23 History acetaminophen 500 mg tablet 500 mg PO Q8H PRN Pain 07/08/23 09/01/23 History albuterol sulfate 90 mcg/actuation 1 inh inhalation UD PRN sob 07/08/23 09/01/23 History aerosol inhaler cholecalciferol (vitamin D3) 50 50 mcg PO DAILY 07/08/23 09/01/23 History mcg (2,000 unit) tablet docusate sodium 250 mg capsule 250 mg PO HS 07/08/23 09/01/23 History oxybutynin chloride 5 mg tablet 5 mg PO DAILY PRN . 07/08/23 09/01/23 History finasteride 5 mg tablet 5 mg PO QAM 08/05/23 09/01/23 History valsartan 40 mg tablet 40 mg PO QAM 08/05/23 09/01/23 History ketoconazole 2 % topical cream 1 applic topical BID PRN NEEDED 09/01/23 09/01/23 History nystatin-triamcinolone 100,000 1 applic topical BID PRN NEEDED 09/01/23 09/01/23 History unit/gram-0.1 % topical ointment vibegron 75 mg tablet (Gemtesa) 75 mg PO DAILY 09/01/23 09/01/23 History Allergies Allergy/AdvReac Type Severity Reaction Status Date / Time house dust Allergy Intermediate Sneezing Verified 09/01/23 23:22 Past Med/Surg History Problem List (Updated 09/02/23 @ 00:27 by Dora Price PA-C) History of ESBL E. coli infection (Acute) Acute UTI (Acute) Urinary obstruction Diabetes Per records Diet controlled Inguinal hernia Stage 3a chronic kidney disease Hypertension Lumbar disc disease with radiculopathy Chronic superficial gastritis without bleeding seen on EGD 05/19/21 Sensorineural hearing loss (SNHL) of both ears Allergic rhinitis Asthma (Acute) BPH with obstruction/lower urinary tract symptoms (Acute) Diverticulum of bladder (Acute) Urinary frequency (Acute) Bilateral inguinal hernia without obstruction or gangrene no surgery Medical History Sheldon catheter in place has been in place since approximately May 2023 (had lumbar decompression/fusion surgery in [place] that resulted in urinary retention) BPH (benign prostatic hyperplasia) History of GI bleed 05/24/19 in [place], EGD& colonoscopy showed gastritis & diverticulosis History of skin cancer Environmental allergies Hypertension Allergy-induced asthma has not needed inhaler for a long time Hx of thyroid cyst pt unsure Surgical History S/P cystoscopy H/O colonoscopy History of cataract surgery rt/left Family History Mother , age 86 Diabetes Father , age 75 Stroke Sister Diabetes Other Cancer Cardiac disorder No family history of adverse response to anesthesia Prostate cancer Denies family history of Ovarian cancer Myocardial infarction Breast cancer Colorectal cancer Social History Smoking Status: Unknown if ever smoked Second Hand Exposure: No; Do You Dip or Chew Tobacco: No; Hx Alcohol Use: Yes Hx Substance Use: No Preferred Language: Indian Communication Ability: Effective Visual Impairment: Limited Hearing Ability: Use of Hearing Aid [employer] Services Supervisor Required: No Beliefs That Will Affect Care: None marital status: Current Living Situation: Spouse current occupational status: employed current occupation: Professor @ [employer] How many Children do You have: 4 Feels Safe at Home: Yes Childhood Exposure to Second-Hand Smoke: No Diet: low salt caffeine: Yes (espresso 3-4 cups daily) Dental Care, Regularly: Yes Physical Activity Frequency: Daily Seatbelt Use: always Sunscreen Use: No Do you think of yourself as: straight/heterosexual Gender Identity: Male Assistive Devices: None Review of Systems A total of 10 systems reviewed and were otherwise negative Physical Exam Vital Signs Vital Signs - 24 hr 05/22/24 19:19 09/01/23 21:19 09/01/23 23:19 Temperature 36.9 C Temperature Source Temporal Artery Scan Pulse Rate 83 80 Pulse Rate [Finger] 86 Respiratory Rate 19 16 Respiratory Effort / Characteristics Non-Labored Respiratory Depth Normal Respiratory Pattern Blood Pressure 175/85 H Blood Pressure [Right Arm] Blood Pressure Mean 115 Blood Pressure Mean [Right Arm] Pulse Oximetry 96 95 Oxygen Delivery Method Room Air Room Air Sepsis Recent Fever Within 48 Hours No Sepsis New/Unexplained Change in Mental Status N/A Sepsis Action Taken by Nursing No Action Required 09/01/23 23:20 Temperature Temperature Source Pulse Rate Pulse Rate [Finger] 78 Respiratory Rate 18 Respiratory Effort / Characteristics Non-Labored Respiratory Depth Normal Respiratory Pattern Regular Blood Pressure Blood Pressure [Right Arm] 155/90 H Blood Pressure Mean Blood Pressure Mean [Right Arm] 111 Pulse Oximetry 100 Oxygen Delivery Method Room Air Sepsis Recent Fever Within 48 Hours Sepsis New/Unexplained Change in Mental Status Sepsis Action Taken by Nursing VITALS: Vitals are noted on the nurse's note and reviewed by myself. Vital signs stable. GENERAL: Pleasant gentleman with present, in no acute distress, nondiaphoretic, well-developed well-nourished. SKIN: Capillary reflex less than 2 seconds. HEENT: Normocephalic. PERRLA. EOMI. Nares patent. Mucous membranes moist. Neck is supple without nuchal rigidity. HEART: Regular rate and rhythm LUNGS: Clear to auscultation bilaterally without wheezes, rales or rhonchi. No retractions or accessory muscle use. ABDOMEN: Positive bowel sounds x 4. Normal tympanic percussion. Soft, tender lower abdomen, without masses or organomegaly. Horner sign negative. No guarding or rebound tenderness. no CVA tenderness MUSCULOSKELETAL: No gross musculoskeletal defects. NEURO: Patient was alert and oriented to person place and time. No focal neurological deficits. Course Administered Medications Discontinued Medications Meropenem 500 mg/ Syringe 10 mls @ 2 mls/min IV NOW STA; Protocol Stop: 09/01/23 21:52 Last Admin: 09/01/23 23:08 Dose: 2 mls/min Documented By: EARLINE Ioversol (Optiray 320 100ml) 87 ml IV ONCE ONE Stop: 09/01/23 22:56 Last Admin: 09/01/23 22:55 Dose: 87 ml Documented By: DEBBIE Medical Decision Making Medical Records Attestation: I reviewed the patient's medical records. Home Medications Current Medication List: was personally reviewed by me Laboratory Data Attestation: I reviewed the patient's lab results. 09/01/23 20:00 09/01/23 20:00 Lab Results 09/01/23 09/01/23 Range/Units 19:07 20:00 WBC 12.11 H (4.8-10.8) K/ul RBC 4.82 (4.70-6.10) M/uL Hgb 14.4 (14.0-18.0) g/dl Hct 43.2 (42.0-52.0) % MCV 89.6 (80.0-100.0) fL MCH 29.9 (25.0-34.0) pg MCHC 33.3 (32.0-36.0) g/dL RDW Std Deviation 41.3 (36.4-46.3) fL RDW Coeff of [place] 12.6 (11.5-14.5) % Plt Count 381 (130-400) K/uL MPV 10.0 (9.4-12.4) fL Immature Gran % (Auto) 0.5 % Neut % (Auto) 76.5 % Lymph % (Auto) 13.9 % [place] % (Auto) 8.3 % Eos % (Auto) 0.7 % Baso % (Auto) 0.1 % Neut # (Auto) 9.27 H (1.40-6.50) K/uL Lymph # (Auto) 1.68 (1.20-3.40) K/uL [place] # (Auto) 1.00 H (0.11-0.59) K/uL Eos # (Auto) 0.09 (0.00-0.50) K/uL Baso # (Auto) 0.01 (0.00-0.20) K/uL Immature Gran # (Auto) 0.06 (0.01-0.20) K/uL Sodium 134 L (136-145) mmol/L Potassium 4.6 (3.5-5.1) mmol/L Chloride 101 (98-107) mmol/L Carbon Dioxide 26 (21-32) mmol/L Anion Gap 7 (3-11) BUN 35 H (6-23) mg/dl Creatinine 1.37 (0.6-1.4) mg/dl Est Cr Clr Drug Dosing 43.0 ml/min Est GFR ( Amer) 56.1 ml/min Est GFR (Non-Af Amer) 48.4 ml/min BUN/Creatinine Ratio 25.5 H (10-20) Glucose 121 H (70-99(Fasting)) mg/dl Calcium 9.2 (8.6-10.3) mg/dl Total Bilirubin 0.5 (0.2-1.0) mg/dl AST 19 (13-39) U/L ALT 9 (7-52) U/L Alkaline Phosphatase 54 (34-104) U/L Total Protein 7.3 (6.0-8.3) gm/dl Albumin 4.1 (3.4-5.0) gm/dl Globulin 3.2 (2.5-4.0) gm/dl Albumin/Globulin Ratio 1.3 (0.9-2) Urine Color Red Urine Appearance Turbid A (Clear) Urine pH 5.5 (4.5-7.5) Ur Specific [place] 1.025 (1.000-1.030) Urine Protein 3+ H (Negative) Urine Glucose (UA) Negative (Negative) Urine Ketones Negative (Negative) Urine Blood 3+ H (Negative) Urine Nitrite Negative (Negative) Urine Bilirubin Negative (Negative) Urine Urobilinogen Negative (Negative) Ur Leukocyte Esterase 1+ H (Negative) Urine RBC >20 H (0-2) /hpf Urine WBC >50 H (0-5) /hpf Ur Epithelial Cells 0-2 (0-2) /hpf Urine Bacteria None Seen (None Seen) Imaging Data Attestation: I personally reviewed and interpreted this imaging study as follows: Radiologist's Impression: Abdomen/Pelvis CT 09/01/23 21:48 Exam(s): CT ABDOMEN + PELVIS With Contrast IV Amt: 87 ML OPTIRAY 320 EXAM: CT Abdomen and Pelvis With Intravenous Contrast CLINICAL HISTORY: Reason for exam: uti, ? Kidney infection/ abscess. TECHNIQUE: Axial computed tomography images of the abdomen and pelvis with intravenous contrast. CTDI is 25 mGy and DLP is 812.76 mGy-cm. Automated exposure control was utilized for the study. A dose lowering technique was utilized adhering to the principles of ALARA. CONTRAST: Patient received 87 ML OPTIRAY 320 of IV contrast COMPARISON: April 28, 2022 FINDINGS: Lung bases: Unremarkable. No mass. No consolidation. Heart: Mild cardiomegaly and severe coronary calcification. ABDOMEN: Liver: 7.3 cm simple cyst in the right liver lobe, unchanged. Multiple smaller cysts are present in the liver. No follow-up is required. Gallbladder and bile ducts: Unremarkable. No calcified stones. No ductal dilation. Pancreas: Unremarkable. No mass. No ductal dilation. Spleen: Unremarkable. No splenomegaly. Adrenals: Unremarkable. No mass. Kidneys and ureters: The kidneys enhance symmetrically with contrast. There are multiple parapelvic cysts on the left measuring up to 1.2 cm, smaller than previous. No hydronephrosis or ureterolithiasis is seen. No signs of pyelonephritis. Stomach and bowel: 7 cm right inguinal hernia containing several bowel loops. No sign of obstruction or acute inflammation. Severe diverticulosis of the lower left and sigmoid colon without evidence of acute diverticulitis. PELVIS: Appendix: No findings to suggest acute appendicitis. Bladder: The urinary bladder is normally distended. There is a 4.5 cm bladder diverticulum posteriorly to the left. There is slight urinary bladder wall thickening which could be due to chronic bladder obstruction, less likely cystitis. There is irregularity of the central prostate suggesting possible previous TURP versus prostatitis. Correlate with history. Reproductive: Unremarkable as visualized. ABDOMEN and PELVIS: Intraperitoneal space: Unremarkable. No free air. No significant fluid collection. Bones/joints: Mild MR multilevel degenerative changes throughout the spine. No acute fracture or subluxation is seen. Soft tissues: See above. Vasculature: The abdominal aorta is mildly calcified but nondilated. Lymph nodes: Unremarkable. No enlarged lymph nodes. IMPRESSION: 1. The urinary bladder is normally distended. There is a 4.5 cm bladder diverticulum posteriorly to the left. There is slight urinary bladder wall thickening which could be due to chronic bladder obstruction, less likely cystitis. There is irregularity of the central prostate suggesting possible previous TURP versus prostatitis. Correlate with history. 2. 7 cm right inguinal hernia containing several bowel loops. No sign of obstruction or acute inflammation. 3. The kidneys enhance symmetrically with contrast. There are multiple parapelvic cysts on the left measuring up to 1.2 cm, smaller than previous. No hydronephrosis or ureterolithiasis is seen. No signs of pyelonephritis. 4. Severe diverticulosis of the lower left and sigmoid colon without evidence of acute diverticulitis. Electronically signed by: Yosi Donaldson MD 09/02/23 00:02 AM MDM Narrative Prior records/ancillary studies reviewed. Triage Nursing notes reviewed. Additional history obtained from family. The patient's history was concerning for urinary symptoms and abdominal pain. Differential diagnosis: Etiologies such as complication of TURP, appendicitis, diverticulitis, PUD, biliary pathology, UTI, pancreatitis, obstruction, mesenteric ischemia, aortic pathology, infections, inflammatory bowel disease, renal colic, as well as others were entertained. Physical examination findings: As above. ER treatment provided: An order was placed for continuous cardiac monitoring. The monitor shows a rate of 60-100 with a sinus rhythm per my Independent interpretation. Meropenem. Patient declined pain meds On reassessment the patient felt better. Diagnostics interpreted by me: The labs Independently Interpreted by myself revealed Leukocytosis and urine concerning for infection sent for culture. Prior culture was reviewed Close Micro Urine Specimen 09/01/23 Urine Culture - Pending Micro Urine Specimen 07/09/23 Urine Culture [place] [place] [address] / Director: Isiah Potter M.D. Clinical Laboratory Report Name: ADILIA GARCIA Acct: [id number] Status: [facility] CLI : 1945 [facility] [place] Date: 07/09/23 Age: 78 Sex: M Dis Date: Loc: Laboratory Main [place] Spec: [id number] Collected: 07/09/23 Received: 07/09/[address]: Rizwan Zamarripa MD Source: Urine,Clean Catch OV Order: Ordered: Urine Culture Procedure Result Verified Site Urine Culture Final 07/11/23-1030 Organism 1 Escherichia coli ESBL [place] Count >100,000 CFU/ml Sens Sensitivities to Follow +Mix Urine Plus Low Counts of Other Mixed Svetlana ESBL E col RX M.I.C. --- --------- Amox/Clav S <=8/4 Ampicillin R >16 Amp/Sul S <=8/4 Cefazolin R >16 Cefepime R <=2 Cefotaxime R >16 Ceftriaxone R >2 Ciprofloxacin R >2 Ertapenem S <=0.5 Gentamicin S <=4 Levofloxacin R >4 Meropenem S <=1 Nitrofurantoin S <=32 Tobramycin S <=4 Trimeth/Sulfa R >2/38 Pip/Tazo S <=16 S = SENSITIVE I = INTERMEDIATE R = RESISTANT Imaging studies: CT as above Consultation: A consultation was placed with the hospitalist. The case was discussed and diagnostics were reviewed. The patient was evaluated in the ER for further treatment. Exam and history seem consistent with UTI with a history of ESBL. Patient was given meropenem. He was symptomatic. Medicine was consulted case discussed. He will be admitted to the medical service. By the evaluation outlined above emergent etiologies such as appendicitis, diverticulitis, PUD, biliary pathology, pancreatitis, obstruction, mesenteric ischemia, aortic pathology, inflammatory bowel disease, renal colic, as well as others were deemed relatively unlikely. The pt informed about the findings as listed above. All questions were answered and pleased with the treatment. The chart was completed utilizing [employer] voice recognition software. Grammatical errors, random word insertions, pronoun errors, and incomplete sentences are an occassional consequence of this system due to software limitations, ambient noise, and hardware issues. Any formal questions or concerns about the content, text, or information contained within the body of this dictation should be directly addressed to the physician assistant professor of sociology for clarification. Impression & Plan Acute UTI, History of ESBL E. coli infection Discharge Plan Visit Data Chief Complaint: Hematuria Stated Complaint: RECENT SURG, HEMATURIA/10 HRS, URGENCY ED Provider: Erendira Del Valle ED Midlevel Provider: Dora Price Discharge Problem: Acute UTI, History of ESBL E. coli infection Patient Disposition: Admitted As Inpatient Condition: Good Forms Stand Alone Forms: [facility] Prescriptions Prescriptions: No Action montelukast 10 mg tablet 10 mg PO HS oxybutynin chloride 5 mg tablet 5 mg PO DAILY PRN (Reason: .) cholecalciferol (vitamin D3) 50 mcg (2,000 unit) tablet 50 mcg PO DAILY docusate sodium 250 mg capsule 250 mg PO HS acetaminophen 500 mg tablet 500 mg PO Q8H PRN (Reason: Pain) albuterol sulfate 90 mcg/actuation HFA aerosol inhaler 1 inh inhalation UD PRN (Reason: sob) finasteride 5 mg tablet 5 mg PO QAM valsartan 40 mg tablet 40 mg PO QAM Gemtesa 75 mg Tablet 75 mg PO DAILY nystatin-triamcinolone 100,000-0.1 unit/gram-% ointment 1 applic topical BID PRN (Reason: NEEDED) Rx Instructions: Apply BID to affected area x14 days, then PRN. ketoconazole 2 % cream 1 applic topical BID PRN (Reason: NEEDED) Referrals Referrals: Ramu Rodgers MD [Primary Care Provider] -
[2023-09-01] MEDS: OPTIRAY 320 100ml IV ONE (22:55)
[2023-09-01] MEDS: MEROPENEM 500 MG in SYRINGE 0 ML IV STA (23:08)
--- NOTE | 2023-09-02 00:03 | CT Scan Report ---
Exam(s): CT ABDOMEN + PELVIS With Contrast IV Amt: 87 ML OPTIRAY 320 EXAM: CT Abdomen and Pelvis With Intravenous Contrast CLINICAL HISTORY: Reason for exam: uti, ? Kidney infection/ abscess. TECHNIQUE: Axial computed tomography images of the abdomen and pelvis with intravenous contrast. CTDI is 25 mGy and DLP is 812.76 mGy-cm. Automated exposure control was utilized for the study. A dose lowering technique was utilized adhering to the principles of ALARA. CONTRAST: Patient received 87 ML OPTIRAY 320 of IV contrast COMPARISON: April 28, 2022 FINDINGS: Lung bases: Unremarkable. No mass. No consolidation. Heart: Mild cardiomegaly and severe coronary calcification. ABDOMEN: Liver: 7.3 cm simple cyst in the right liver lobe, unchanged. Multiple smaller cysts are present in the liver. No follow-up is required. Gallbladder and bile ducts: Unremarkable. No calcified stones. No ductal dilation. Pancreas: Unremarkable. No mass. No ductal dilation. Spleen: Unremarkable. No splenomegaly. Adrenals: Unremarkable. No mass. Kidneys and ureters: The kidneys enhance symmetrically with contrast. There are multiple parapelvic cysts on the left measuring up to 1.2 cm, smaller than previous. No hydronephrosis or ureterolithiasis is seen. No signs of pyelonephritis. Stomach and bowel: 7 cm right inguinal hernia containing several bowel loops. No sign of obstruction or acute inflammation. Severe diverticulosis of the lower left and sigmoid colon without evidence of acute diverticulitis. PELVIS: Appendix: No findings to suggest acute appendicitis. Bladder: The urinary bladder is normally distended. There is a 4.5 cm bladder diverticulum posteriorly to the left. There is slight urinary bladder wall thickening which could be due to chronic bladder obstruction, less likely cystitis. There is irregularity of the central prostate suggesting possible previous TURP versus prostatitis. Correlate with history. Reproductive: Unremarkable as visualized. ABDOMEN and PELVIS: Intraperitoneal space: Unremarkable. No free air. No significant fluid collection. Bones/joints: Mild MR multilevel degenerative changes throughout the spine. No acute fracture or subluxation is seen. Soft tissues: See above. Vasculature: The abdominal aorta is mildly calcified but nondilated. Lymph nodes: Unremarkable. No enlarged lymph nodes. IMPRESSION: 1. The urinary bladder is normally distended. There is a 4.5 cm bladder diverticulum posteriorly to the left. There is slight urinary bladder wall thickening which could be due to chronic bladder obstruction, less likely cystitis. There is irregularity of the central prostate suggesting possible previous TURP versus prostatitis. Correlate with history. 2. 7 cm right inguinal hernia containing several bowel loops. No sign of obstruction or acute inflammation. 3. The kidneys enhance symmetrically with contrast. There are multiple parapelvic cysts on the left measuring up to 1.2 cm, smaller than previous. No hydronephrosis or ureterolithiasis is seen. No signs of pyelonephritis. 4. Severe diverticulosis of the lower left and sigmoid colon without evidence of acute diverticulitis. Electronically signed by: Yosi Donaldson MD 09/02/23 00:02 AM
--- NOTE | 2023-09-02 00:42 | History & Physical Report ---
"Date of Service September 02, 2023 Assessment & Plan (1) S/P TURP (status post transurethral resection of prostate): (2) Acute UTI: (3) History of ESBL E. coli infection: (4) Diabetes: (5) Stage 3a chronic kidney disease: (6) Hypertension: (7) Lumbar disc disease with radiculopathy: (8) Asthma: (9) Bilateral inguinal hernia without obstruction or gangrene: Plan Xu is an 78M with PMH of DM, CKD3, HTN, lumbar radiculopathy, gastritis, SNHL, asthma, and bilateral inguinal hernias who presents for hematuria. Patient has a history of BPH with urinary obstruction and recently received a TURP procedure 08/20/23. Patient has a history of urinary infections by ESBL E. coli. ED Course: Meropenem Urinary Tract Infection | Prior ESBL E. Coli Recent TURP 08/20/23 - Patient presenting with hematuria, 13 days out from uncomplicated TURP - Endorsing dysuria since procedure, but no new frequency, suprapubic pain, CVA tenderness, or fevers/chills - Urinalysis w/ 3 blood, positive leukocytes, and elevated WBC, culture pending Hx of ESBL, sensitive to Augmentin, Unasyn, Ertapenem, Gentamycin, Meropenem. Nitrofurantoin, Tobramycin, and Zosyn - Leukocytosis on presentation, labs otherwise unremarkable - CTAP with bladder distention and diverticula, also showing bladder wall thickening more c/w chronic obstruction No hydronephrosis, nephrolithiasis, or pyelonephritis present - Started patient on mIVF on admission - Received 1 dose of Meropenem, patient likely to benefit from Unasyn followed by Augmentin for empiric UTI coverage rather than Meropenem - Urology consulted given recent TURP, appreciate recommendations Suspect normal presentation post TURP vs acute UTI NPO pending Urology evaluation out of abundant caution Chronic Conditions: - Diabetes: Diet controlled, DM2 diet following Urology eval, no SSI inpatient - CKD 3: Chronic, stable - HTN: Continue home Valsartan - Lumbar Radiculopathy; Tylenol PRN - Asthma: Albuterol PRN - Diverticulosis of Colon; No evidence of diverticulitis on CTAP - Bilateral Inguinal Hernias; No evidence of obstruction on CTAP FEN: DM2 following NPO Code status: Full Code DVT ppx:SCD and Ambulation Isolation: None Dispo:Med/Surg History of Present Illness Chief Complaint: Hematuria Primary Care Provider: Ramu Rodgers MD Xu is an 78M with PMH of DM, CKD3, HTN, lumbar radiculopathy, gastritis, SNHL, asthma, and bilateral inguinal hernias who presents for hematuria. Patient has a history of BPH with urinary obstruction and recently received a TURP procedure 08/20/23. Patient has a history of urinary infections by ESBL E. coli. ED Course: Meropenem Patient notes that he was recoverin well at home from his recent TURP procedure, but that this morning he noted he started having hematuria. He states that he is aware of bleeding post-operatively from TURP procedures, but that the amount that he was urinated throughout the day today was more than he anticipated. He denies clots in his urine. Patient notes that he has had mild discomfort/burning with urination since his procedure, but that he tried Pyridium, and did not like that it made his urine orange, so he stopped taking it. He has been managing his symptoms at home with Tylenol. Patient denies any suprapubic discomfort or increased urinary frequency. He is not experiencing fevers, chills, nausea, emesis, or back/flank pain. Patient notes that he briefly had a Sheldon catheter during his admission post-procedure, but has been voiding independently at home since. Patient continues to eat and drink normally. Allergies Allergy/AdvReac Type Severity Reaction Status Date / Time house dust Allergy Intermediate Sneezing Verified 09/01/23 23:22 Home Medications Medication Instructions Recorded Confirmed Type montelukast 10 mg tablet 10 mg PO HS 06/26/20 09/01/23 History acetaminophen 500 mg tablet 500 mg PO Q8H PRN Pain 07/08/23 09/01/23 History albuterol sulfate 90 mcg/actuation 1 inh inhalation UD PRN sob 07/08/23 09/01/23 History aerosol inhaler cholecalciferol (vitamin D3) 50 50 mcg PO DAILY 07/08/23 09/01/23 History mcg (2,000 unit) tablet docusate sodium 250 mg capsule 250 mg PO HS 07/08/23 09/01/23 History oxybutynin chloride 5 mg tablet 5 mg PO DAILY PRN . 07/08/23 09/01/23 History finasteride 5 mg tablet 5 mg PO QAM 08/05/23 09/01/23 History valsartan 40 mg tablet 40 mg PO QAM 08/05/23 09/01/23 History ketoconazole 2 % topical cream 1 applic topical BID PRN NEEDED 09/01/23 09/01/23 History nystatin-triamcinolone 100,000 1 applic topical BID PRN NEEDED 09/01/23 09/01/23 History unit/gram-0.1 % topical ointment vibegron 75 mg tablet (Gemtesa) 75 mg PO DAILY 09/01/23 09/01/23 History Past Med/Surg History Problem List S/P TURP (status post transurethral resection of prostate) History of ESBL E. coli infection (Acute) Acute UTI (Acute) Urinary obstruction Diabetes Per records Diet controlled Inguinal hernia Stage 3a chronic kidney disease Hypertension Lumbar disc disease with radiculopathy Chronic superficial gastritis without bleeding seen on EGD 05/19/21 Sensorineural hearing loss (SNHL) of both ears Allergic rhinitis Asthma (Acute) BPH with obstruction/lower urinary tract symptoms (Acute) Diverticulum of bladder (Acute) Urinary frequency (Acute) Bilateral inguinal hernia without obstruction or gangrene no surgery Medical History Encounter for pre-operative examination Urinary retention due to benign prostatic hyperplasia Sheldon catheter in place has been in place since approximately May 2023 (had lumbar decompression/fusion surgery in [place] that resulted in urinary retention) BPH (benign prostatic hyperplasia) History of GI bleed 05/24/19 in [place], EGD& colonoscopy showed gastritis & diverticulosis History of skin cancer Environmental allergies Hypertension Allergy-induced asthma has not needed inhaler for a long time Hx of thyroid cyst pt unsure Surgical History S/P cystoscopy H/O colonoscopy History of cataract surgery rt/left Family History Mother , age 86 Diabetes Father , age 75 Stroke Sister Diabetes Other Cancer Cardiac disorder No family history of adverse response to anesthesia Prostate cancer Denies family history of Ovarian cancer Myocardial infarction Breast cancer Colorectal cancer Social History Smoking Status: Never smoker Second Hand Exposure: No; Do You Dip or Chew Tobacco: No; Hx Alcohol Use: Yes Alcohol type: beer Hx Substance Use: No Preferred Language: Senegalese Communication Ability: Effective Visual Impairment: Limited Hearing Ability: Use of Hearing Aid Bitumen Plant Operator Required: No Beliefs That Will Affect Care: None marital status: Current Living Situation: Spouse current occupational status: employed current occupation: Professor @ [employer] How many Children do You have: 4 Feels Safe at Home: Yes Childhood Exposure to Second-Hand Smoke: No Diet: low salt caffeine: Yes (espresso 3-4 cups daily) Dental Care, Regularly: Yes Physical Activity Frequency: Daily Seatbelt Use: always Sunscreen Use: No Do you think of yourself as: straight/heterosexual Gender Identity: Male Assistive Devices: None Physical Exam Physical Exam: Gen: NAD, alert, pleasant, AO x 4 HEENT: Supple, no LAD, no thyromegaly, no JVD, MMM Resp:Non-labored, no wheezing/rhonchi/rales, CTAB CV:RRR, normal S1/S2, no M/R/G Abd: Soft, non-distended, no TTP, normoactive bowels, no masses, no CVA tenderness, no rebound or guarding Extr: 2+ dp bilaterally, no edema Skin: No rashes lesions or erythema Results & Data Results & Data Vital Signs (Past 12 Hours) Vital Signs Temp Pulse Pulse Resp BP BP Pulse Ox 09/01/23 23:20 78 18 155/90 H 100 09/01/23 23:19 80 09/01/23 21:19 86 16 95 09/01/23 19:19 36.9 C 83 19 175/85 H 96 O2 Del Method 09/01/23 23:20 Room Air 09/01/23 23:19 09/01/23 21:19 Room Air 09/01/23 19:19 Room Air Supervising Physician Co-Signing Physician Notes Patient seen and examined, chart reviewed, case discussed with Dr. López and I agree with the assessment and plan as above Resident Activity Tracking Resident Involvement: Resident Care Provided Care Provided: Adult Hospital Medicine"
--- NOTE | 2023-09-02 02:31 | Emergency Department Note ---
ED Visit Note I was consulted by the Advanced Practice Provider. I approved the management plan and take responsibility for the patient management. -History/Physical -MDM -I independently interpreted the following studies:Studies and results .
[2023-09-02] MEDS: MELATONIN 3 MG TAB PO STA (03:32)
[2023-09-02] MEDS: DOCUSATE SODIUM 100 MG CAP PO ONE (03:32)
[2023-09-02] MEDS: ACETAMINOPHEN 500 MG TAB PO STA (03:32)
[2023-09-02] MEDS: LACTATED RINGER'S 1,000 ML IV SCH (04:50)
[2023-09-02] MEDS ORDERED: POLYETHYLENE (MIRALAX) 17 GM PACK PO PRN (04:50)
[2023-09-02] MEDS ORDERED: AMPICILLIN SOD/SULBACTAM SOD 3 GM VIAL IV SCH (04:50)
[2023-09-02] MEDS ORDERED: MELATONIN 3 MG TAB PO PRN (04:50)
[2023-09-02] MEDS ORDERED: oxyBUTYnin chloride 5 MG TAB PO PRN (04:50)
[2023-09-02] MEDS ORDERED: ONDANSETRON INJ 2 MG/ML 2 ML VIAL IV PRN (04:50)
[2023-09-02] MEDS ORDERED: ACETAMINOPHEN 500 MG TAB PO PRN (04:50)
[2023-09-02] MEDS ORDERED: ALBUTEROL HFA 8 GM INHALER INH PRN (04:50)
[2023-09-02] MEDS: MONTELUKAST SODIUM 10 MG TABLET PO SCH (04:50)
[2023-09-02] MEDS: AMPICILLIN/SULBACTAM SOD 3,000 MG in SODIUM CHLOR 0.9% MINI-B 100 ML IV SCH (05:59)
[2023-09-02] MEDS: VALSARTAN 80 MG TAB PO SCH (08:38)
[2023-09-02] MEDS: VIBEGRON 75 MG TAB PO SCH (08:38)
[2023-09-02] MEDS: FINASTERIDE 5 MG TAB PO SCH (08:38)
[2023-09-02] MEDS: ERTAPENEM SODIUM 1,000 MG in SYRINGE 0 ML IV SCH (11:40)
--- NOTE | 2023-09-02 13:33 | Discharge Summary ---
"Date of Service September 02, 2023 Admission HPI Per Admitting Provider Xu is an 78M with PMH of DM, CKD3, HTN, lumbar radiculopathy, gastritis, SNHL, asthma, and bilateral inguinal hernias who presents for hematuria. Patient has a history of BPH with urinary obstruction and recently received a TURP procedure 08/20/23. Patient has a history of urinary infections by ESBL E. coli. ED Course: Meropenem Patient notes that he was recoverin well at home from his recent TURP procedure, but that this morning he noted he started having hematuria. He states that he is aware of bleeding post-operatively from TURP procedures, but that the amount that he was urinated throughout the day today was more than he anticipated. He denies clots in his urine. Patient notes that he has had mild discomfort/burning with urination since his procedure, but that he tried Pyridium, and did not like that it made his urine orange, so he stopped taking it. He has been managing his symptoms at home with Tylenol. Patient denies any suprapubic discomfort or increased urinary frequency. He is not experiencing fevers, chills, nausea, emesis, or back/flank pain. Patient notes that he briefly had a Sheldon catheter during his admission post-procedure, but has been voiding independently at home since. Patient continues to eat and drink normally. Admission Exam Per Admitting Provider Gen: NAD, alert, pleasant, AO x 4 HEENT: Supple, no LAD, no thyromegaly, no JVD, MMM Resp:Non-labored, no wheezing/rhonchi/rales, CTAB CV:RRR, normal S1/S2, no M/R/G Abd: Soft, non-distended, no TTP, normoactive bowels, no masses, no CVA tenderne ss, no rebound or guarding Extr: 2+ dp bilaterally, no edema Skin: No rashes lesions or erythema Principal Diagnosis complicated UTI Discharge Exam Constitutional WD/WN, vitals as above Respiratory normal respiratory effort, lungs clear to auscultation Cardiovascular RRR, no murmur, no edema Gastrointestinal (Abdomen) normal bowel sounds, soft, nontender, no hepatosplenomegaly Skin no rashes, warm and dry Psychiatric A+Ox3, euthymic affect Genitourinary no CVA tenderness Discharge Data Allergies Allergy/AdvReac Type Severity Reaction Status Date / Time house dust Allergy Intermediate Sneezing Verified 09/01/23 23:22 Consultations 09/02/23 00:25 ED Decision to Admit Stat Ordered Studies 09/01/23 21:48 CT Abd and Pelvis [CT abd pelvis IV con only] Stat Hospital Course (1) S/P TURP (status post transurethral resection of prostate): (2) Acute UTI: (3) History of ESBL E. coli infection: (4) Diabetes: (5) Stage 3a chronic kidney disease: (6) Hypertension: (7) Lumbar disc disease with radiculopathy: (8) Asthma: (9) Bilateral inguinal hernia without obstruction or gangrene: Plan Xu is an 78M with PMH of DM, CKD3, HTN, lumbar radiculopathy, gastritis, SNHL, asthma, and bilateral inguinal hernias who presented with hematuria. Patient has a history of BPH with urinary obstruction and recently received a TURP procedure 08/20/23. Patient has a history of urinary infections by ESBL E. coli. Complicated Urinary Tract Infection | Prior ESBL E. Coli Recent TURP 08/20/23 - Patient presented with hematuria, 13 days after TURP - Urinalysis w/ 3+ blood, positive leukocytes, and elevated WBC, culture pending Hx of ESBL, sensitive to Augmentin, Unasyn, Ertapenem, Gentamycin, Meropenem. Nitrofurantoin, Tobramycin, and Zosyn Treated with 5 day course of Augmentin on 08/21/23 Urine culture pending at time of discharge, recommend follow up on sensitivities/consideration of alternate abx regimen as appropriate - Leukocytosis on presentation, labs otherwise unremarkable - CTAP with bladder distention and diverticula, also showing bladder wall thickening more c/w chronic obstruction No hydronephrosis, nephrolithiasis, or pyelonephritis present - Due previous ESBL and what seems to be recent treatment failure with Augmentin, discharged on IV Ertapenem, patient to present to [facility] for daily IV abx through 09/07. - Case discussed with Dr. Zamarripa, recommend treating as complicated UTI as opposed to prostatitis Chronic Conditions: - Diabetes: Continue home regimen - CKD 3: Chronic, stable - HTN: Continue home Valsartan - Lumbar Radiculopathy; Tylenol PRN - Asthma: Albuterol PRN - Diverticulosis of Colon; No evidence of diverticulitis on CTAP - Bilateral Inguinal Hernias; No evidence of obstruction on CTAP Total Time Total Time Spent Total Time Spent (In Minutes): <30 Discharge Plan Discharge Items Patient Disposition: Home - Self-Care Reason For Visit: HEMATURIA, S/P TURP Discharge Diagnosis: Complicated UTI Condition on Discharge: Good Activity: Resume your previous activity Non-emergency contact: Primary Care Provider and Urologist Call non-emergency contact if: you have any medication questions, your symptoms worsen and you have a fever Follow-up/Referrals: [facility] ([facility] [Outside] - 09/03/23 8:00 am (You have an appointment tomorrow, September 03, 2023 at 8:00am for your IV antibiotic infusion.) Ramu Rodgers MD [Primary Care Provider] - 09/07/23 9:15 am Diet: Regular Addtl Attending Provider Instructions: You were admitted to the hospital due to blood in your urine, likely caused by a urinary tract infection. Because you have a recent urine culture with limited antibiotic sensitivity, we are discharging you on an IV antibiotic called Ertapenem. As discussed, you will need to be seen in [facility] once daily for 6 more days to receive your antibiotics. We are currently waiting on culture results for a urine sample that was collected this admission. If the antibiotic sensitivity changes when we receive the results, someone will contact you and adjust your antibiotics as appropriate. A discharge summary will be sent to your primary care physician to ensure continuity of care. Please bring this discharge summary with you to your next office appointment so that your provider can review it at that time. Medications: Your medication list has been reviewed and reconciled upon discharge to ensure accuracy and continuity of care. An updated list of all your medications is included with your hospital discharge paperwork. Please review this list closely and make note of any changes to your medications. Follow up appointments: - Make a follow up appointment with your PCP within the next week. It is very important that you follow up with them shortly after discharge from the hospital. - Keep all of your follow up appointments as already scheduled. If you cannot make an appointment, notify your provider. CONTACT YOUR PRIMARY CARE PROVIDER if you experience any of the following: - Difficulty following your treatment plan - Difficulty taking any of your medications CALL 911 OR GO TO THE EMERGENCY DEPARTMENT if you experience any of the following: - Sudden, severe abdominal pain or nausea/vomiting - Severe chest pain or chest pain that radiates to your jaw or arm - Sudden, severe shortness of breath or difficulty breathing Pending Studies at Discharge: No Stand-Alone Forms: My [facility], Smoking Cessation Medications and DC Order Prescriptions: Continued montelukast 10 mg tablet 10 mg PO HS oxybutynin chloride 5 mg tablet 5 mg PO DAILY PRN (Reason: .) cholecalciferol (vitamin D3) 50 mcg (2,000 unit) tablet 50 mcg PO DAILY docusate sodium 250 mg capsule 250 mg PO HS acetaminophen 500 mg tablet 500 mg PO Q8H PRN (Reason: Pain) albuterol sulfate 90 mcg/actuation HFA aerosol inhaler 1 inh inhalation UD PRN (Reason: sob) finasteride 5 mg tablet 5 mg PO QAM valsartan 40 mg tablet 40 mg PO QAM Gemtesa 75 mg Tablet 75 mg PO DAILY nystatin-triamcinolone 100,000-0.1 unit/gram-% ointment 1 applic topical BID PRN (Reason: NEEDED) Rx Instructions: Apply BID to affected area x14 days, then PRN. ketoconazole 2 % cream 1 applic topical BID PRN (Reason: NEEDED) Discharge Orders: Discharge Order (Routine); Ordered 09/02/23 Ordered By: Ramu George Admission Data Admit Date/Time: 09/02/23 01:45 Attending Provider: Rayo Mccall Admit Provider: David López Primary Care Provider: Ramu Rodgers Other Providers: Alysia Donaldson Other Interventions: Discharge Summary Assessment (RN) Last Done: 09/02/23 13:34 Supervising Physician Co-Signing Physician Notes I personally examined the patient and verified all carter points of history and exam, discussed case, and agree with decision making with Dr George Feeling better, urine clearing. Would like to go home. Discussed culture pending, prior culture would suggest that ertapenem would be treatment of choice. He expresses understanding of this and no hesitation about treatment at [facility]. Vitals noted, in general he is awake and alert pleasant no distress. HEENT normocephalic atraumatic mucous membranes moist. Breathing unlabored no accessory muscle use good effort. Skin shows no rashes no pallor or icterus. Neuro without focal deficits. Complicated UTIdiscussed with urology they highly doubt true prostatitis. Will treat for a total of 7 days of ertapenem. Day 1 has been given here, the rest will follow through [facility]. Discussed with patient that if his culture surprise us, and it does not show an ESBL similar to what he had a few months ago, we could then switch to oral antibiotics, but this will be unlikely, and he would like to go home todaygiven that his cultures will not likely be finalized until tomorrow, he is happy and willing to go to [facility] for [facility]apenem for his treatment. Otherwise as above Resident Activity Tracking Resident Involvement: Resident Care Provided Care Provided: Adult Hospital Medicine"
--- NOTE | 2023-09-02 13:56 | Urology Consultation ---
Date of Consultation September 02, 2023 Assessment & Plan (1) S/P TURP (status post transurethral resection of prostate): (2) BPH with obstruction/lower urinary tract symptoms: (3) Acute UTI: 78 yo/M with history of BPH with LUTS status post TURP on 08/20/2023 admitted for increasing urinary symptoms and suspicion of UTI. Patient is afebrile and hemodynamically stable Urinalysis showed blood, 1+ LE, >50 WBC, negative for bacteria Urine culture is preliminary gram-negative bacilli Recommend continue broad-spectrum antibiotics and narrow per sensitivity data when available Patient is being discharged with plan for IV antibiotics through the [facility] No acute intervention necessary at this time Recommend treatment of UTI, follow-up cultures Reviewed expectations post procedure and reassured that blood can occur intermittently s/p TURP as well as urgency and frequency He has some Gemtesa at home from Dr. Zamarripa and he can try this for his urgency/frequency symptoms if desired Keep urology f/u as scheduled History of Present Illness Attending Physician: Rayo Mccall DO History of Present Illness This is an 78-year-old male with history of BPH with LUTS status post TURP on 08/20/[address] Zamarripa who presented to the emergency department on 09/01/2023 with increasing urinary symptoms, hematuria, and bladder discomfort. On arrival, he was afebrile, hypertensive but otherwise stable vitals. Lab work showed WBC 12.11, hemoglobin 14.4, sodium 134, creatinine 1.37. Urinalysis showed 3+ protein, 3+ blood, 1+ LE, >20 RBC, greater than symbol 50 WBC and negative for bacteria. CT A/P with contrast showed a bladder diverticulum, slight bladder wall thickening and TURP defect. He was treated with meropenem in the emergency department. He was admitted to the hospital medicine service for acute UTI, hx of ESBL infections. Patient seen and examined at bedside this afternoon. Subjectively feeling better since arrival. He reports some urinary discomfort for the past few days. Reports mild dysuria and hematuria prior to presentation. He has some bothersome urgency and frequency since procedure. He feels he is emptying his bladder well. Denies fever, chills, nausea or vomiting. Allergies Allergy/AdvReac Type Severity Reaction Status Date / Time house dust Allergy Intermediate Sneezing Verified 09/01/23 23:22 Home Medications Medication Instructions Recorded Confirmed Type montelukast 10 mg tablet 10 mg PO HS 06/26/20 09/01/23 History acetaminophen 500 mg tablet 500 mg PO Q8H PRN Pain 07/08/23 09/01/23 History albuterol sulfate 90 mcg/actuation 1 inh inhalation UD PRN sob 07/08/23 09/01/23 History aerosol inhaler cholecalciferol (vitamin D3) 50 50 mcg PO DAILY 07/08/23 09/01/23 History mcg (2,000 unit) tablet docusate sodium 250 mg capsule 250 mg PO HS 07/08/23 09/01/23 History oxybutynin chloride 5 mg tablet 5 mg PO DAILY PRN . 07/08/23 09/01/23 History finasteride 5 mg tablet 5 mg PO QAM 08/05/23 09/01/23 History valsartan 40 mg tablet 40 mg PO QAM 08/05/23 09/01/23 History ketoconazole 2 % topical cream 1 applic topical BID PRN NEEDED 09/01/23 09/01/23 History nystatin-triamcinolone 100,000 1 applic topical BID PRN NEEDED 09/01/23 09/01/23 History unit/gram-0.1 % topical ointment vibegron 75 mg tablet (Gemtesa) 75 mg PO DAILY 09/01/23 09/01/23 History Patient History Medical History Encounter for pre-operative examination Urinary retention due to benign prostatic hyperplasia She[facility]on catheter in place has been in place since approximately May 2023 (had lumbar decompression/fusion surgery in [place] that resulted in urinary retention) BPH (benign prostatic hyperplasia) History of GI bleed 05/24/19 in [place], EGD& colonoscopy showed gastritis & diverticulosis History of skin cancer Environmental allergies Hypertension Allergy-induced asthma has not needed inhaler for a long time Hx of thyroid cyst pt unsure Surgical History S/P cystoscopy H/O colonoscopy History of cataract surgery rt/left Family History Mother , age 86 Diabetes Father , age 75 Stroke Sister Diabetes Other Cancer Cardiac disorder No family history of adverse response to anesthesia Prostate cancer Denies family history of Ovarian cancer Myocardial infarction Breast cancer Colorectal cancer Social History Smoking Status: Never smoker Second Hand Exposure: No; Do You Dip or Chew Tobacco: No; Hx Alcohol Use: Yes Alcohol type: beer Hx Substance Use: No Preferred Language: Greek Communication Ability: Effective Visual Impairment: Limited Hearing Ability: Use of Hearing Aid Line Tester Required: No Beliefs That Will Affect Care: None marital status: Current Living Situation: Spouse current occupational status: employed current occupation: Professor @ [employer] How many Children do You have: 4 Feels Safe at Home: Yes Childhood Exposure to Second-Hand Smoke: No Diet: low salt caffeine: Yes (espresso 3-4 cups daily) Dental Care, Regularly: Yes Physical Activity Frequency: Daily Seatbelt Use: always Sunscreen Use: No Do you think of yourself as: straight/heterosexual Gender Identity: Male Assistive Devices: None Review of Systems Review of Systems: All systems reviewed & are unremarkable except as noted in HPI & below Physical Exam Constitutional: well developed and well nourished; no acute distress Respiratory: normal respiratory effort; no respiratory distress and no labored breathing Gastrointestinal (Abdomen): Inspection/Auscultation: abdomen normal to inspection Musculoskeletal: Head/Neck/Chest: normocephalic Neurologic: moves all extremities and awake Psychiatric: Orientation: alert and oriented x 3 Results & Data Vital Signs (Past 12 Hours) Vital Signs Temp Pulse Pulse Pulse Resp BP BP 09/02/23 13:34 36.2 C L 81 79 16 138/85 165/88 H 09/02/23 07:10 36.2 C L 79 16 165/88 H 09/02/23 04:20 36.3 C L 81 18 138/85 09/02/23 04:20 36.3 C L 81 18 138/85 09/02/23 03:48 77 18 158/88 H 09/02/23 03:25 74 09/02/23 02:50 83 18 152/82 H Pulse Ox O2 Del Method 09/02/23 13:34 95 09/02/23 07:10 95 Room Air 09/02/23 04:20 95 Room Air 09/02/23 04:20 95 Room Air 09/02/23 03:48 97 Room Air 09/02/23 03:25 09/02/23 02:50 PG Care Time/CCT Total # of Minutes Spent Total Time Spent with Patient: Total time spent is greater than 50% in coordination of care (as documented) at patient's floor/unit and/or counseling patient: Coding Level of Care Code 34045 INT INP/OBS CARE 1/40MIN Diagnoses S/P TURP (status post transurethral resection of prostate) Z90.79 BPH with obstruction/lower urinary tract symptoms N40.1; N13.8 Acute UTI N39.0
--- NOTE | 2023-09-02 18:19 | Billing Data ---
Date of Service September 02, 2023 Coding Level of Care Code 68024 IN/OBS DISCH 30 MIN/LESS
[2023-09-02] MEDS ORDERED: DOCUSATE SODIUM 100 MG CAP PO SCH (21:00)
--- NOTE | 2023-09-03 06:01 | Billing Data ---
Date of Service September 02, 2023 Coding Level of Care Code 93949 INT INP/OBS CARE
== END 2023-09-02 14:20 | disposition home or self-care (01) | DRG 690 ==
LOC: ED 19:18 → 3E 09-02 01:45 → SUATTDRO 09-02 01:45 → 3E 09-02 03:51
DX: N32.3 Diverticulum of bladder; N18.30 Chronic kidney disease, stage 3 unspecified; E11.22 Type 2 diabetes mellitus with diabetic chronic kidney disease; K57.30 Diverticulosis of large intestine without perforation or abscess without bleeding; M54.16 Radiculopathy, lumbar region; J45.909 Unspecified asthma, uncomplicated; R31.9 Hematuria, unspecified; Z98.890 Other specified postprocedural states; Z87.440 Personal history of urinary (tract) infections; H90.5 Unspecified sensorineural hearing loss; I12.9 Hypertensive chronic kidney disease with stage 1 through stage 4 chronic kidney disease, or unspecified chronic kidney disease; N39.0 Urinary tract infection, site not specified; K40.20 Bilateral inguinal hernia, without obstruction or gangrene, not specified as recurrent